=== PATIENT | female | born 1990 | race Caucasian/White ===

== ENCOUNTER 2021-09-07 22:25 | Inpatient (IN) | payer MEDICAID, OTHER ==
[~2021-09-07] VITALS: Ht 165.1 cm; Wt 62.2 kg
[2021-09-07] MEDS ORDERED: ONDANSETRON HCL 4MG/2ML INJ IV STA (23:01)
[2021-09-07 23:09] LABS: BG CARBOXYHEMOGLOBIN 2.8 % (0.5-1.5); BG DEOXYHEMOGLOBIN 0.3 % (0.0-5.0); BG FRACTION INSPIRED OXYGEN 50; BG HCO3 ACT 22.6 mmol/L (22.0-26.0); BG METHEMOGLOBIN 0.3 % (0.0-1.5); BG OXYGEN SATURATION 99.7 % (92.0-98.5); BG OXYHEMOGLOBIN 96.6 % (94.0-97.0); BG PCO2 42.4 mmHg (35.0-45.0); BG PH 7.344 (7.350-7.450); BG PO2 307.6 mmHg (75.0-100.0); BG SAMPLE SITE LEFT BRACHIAL; BG TOTAL HEMOGLOBIN 12.7 g/dL (12.0-18.0); BG VENT MODE VENT - AC
[2021-09-07] MEDS ORDERED: MIDAZOLAM HCL 50 MG in DEXTROSE 5% WATER 40 ML IV ONE (23:15)
[2021-09-07] MEDS ORDERED: MIDAZOLAM 100 MG/100 ML IV NR (23:15)
[2021-09-07] MEDS ORDERED: ETOMIDATE 2MG/ML 10ML VIAL IV ONE (23:15)
[2021-09-07] MEDS ORDERED: PROPOFOL 10MG/ML 100ML 100 ML IV ONE (23:15)
[2021-09-07] MEDS ORDERED: SODIUM CHLORIDE 0.9% 1,000 ML IV ONE (23:15)
[2021-09-07] MEDS ORDERED: VECURONIUM BROMIDE 10 MG/VIAL IV ONE (23:15)
[2021-09-08] VITALS (79 sets, daily range): BP systolic 85–148; BP diastolic 47–83
[2021-09-08 00:10] LABS: CHLORIDE 108 mEq/L (98-107)
[2021-09-08 00:14] LABS: BASOPHILS % 0.2 % (0.0-2.0); EOSINOPHILS % 0.2 % (0.0-5.0); HEMATOCRIT. 36.7 % (36.0-48.0); HEMOGLOBIN. 11.5 g/dL (12.0-16.0); LYMPHOCYTES % 9.6 % (20.0-50.0); MEAN CORPUSCULAR HEMOGLOBIN 24.7 pg (28.0-32.0); MEAN CORPUSCULAR VOLUME 78.9 fL (81.0-99.0); MEAN PLATELET VOLUME 8.9 fl (7.4-10.4); MONOCYTES % 4.9 % (2.0-8.0); NEUTROPHILS % 85.1 % (40.0-76.0); PLATELET 180 x1000/uL (130-400); RED BLOOD CELL COUNT 4.65 mill/uL (4.2-5.4); RED CELL DISTRIBUTION WIDTH 24.2 % (11.6-14.6)
[2021-09-08 00:18] LABS: ETHANOL BLOOD < 10 mg/dL
[2021-09-08 00:20] LABS: HCG SCREEN NEGATIVE
[2021-09-08 00:51] LABS: CLARITY URINE CLOUDY (CLEAR); COLOR URINE YELLOW (YELLOW); KETONES URINE 3+ (NEGATIVE); LEUKOCYTE ESTERASE URINE NEGATIVE (NEGATIVE); NITRITE URINE NEGATIVE (NEGATIVE); OCCULT BLOOD URINE NEGATIVE (NEGATIVE); PH URINE 5.5 (4.5-8.0); PROTEIN URINE 2+ (NEGATIVE); SPECIFIC GRAVITY URINE 1.026 (1.005-1.030); UROBILINOGEN URINE 0.2 E.U./dL (0.2-1.0)
[2021-09-08 01:06] LABS: *BARBITURATES SCREEN URINE NEGATIVE (NEGATIVE); *COCAINE SCREEN URINE NEGATIVE (NEGATIVE); CANNABINOID URINE SCREEN NEGATIVE (NEGATIVE); METHADONE URINE SCREEN NEGATIVE (NEGATIVE); OPIATES URINE SCREEN NEGATIVE (NEGATIVE); PHENCYCLIDINE URINE SCREEN NEGATIVE (NEGATIVE)
[2021-09-08 01:23] LABS: *AMPHETAMINES SCREEN URINE PRESUMTIVE POSITIVE (NEGATIVE); *BENZODIAZEPINES SCREEN URINE PRESUMTIVE POSITIVE (NEGATIVE)
[2021-09-08 04:50] LABS: PLATELET ESTIMATE NORMAL
[2021-09-08] MEDS ORDERED: ONDANSETRON HCL 4MG/2ML INJ IV PRN (05:45)
[2021-09-08] MEDS ORDERED: ENOXAPARIN 80MG/0.8ML SYR SUBCUT SCH ×2 (06:00→09:00)
[2021-09-08] MEDS: DEXT 5%/0.45% NACL KCL 20MEQ/L 1,000 ML IV SCH ×2 (08:13→18:04)
[2021-09-08] MEDS ORDERED: SODIUM CHLORIDE 0.9% 10ML VIAL ONE (08:17)
[2021-09-08] MEDS ORDERED: VECURONIUM BROMIDE 10 MG/VIAL IV ONE (08:17)
[2021-09-08] MEDS ORDERED: ETOMIDATE 2MG/ML 10ML VIAL IV ONE (08:17)
[2021-09-08 08:48] LABS: INR 1.1; PARTIAL THROMBOPLASTIN TIME 27.1 sec (23.4-31.0); PROTHROMBIN TIME 11.4 sec (9.6-11.0)
[2021-09-08 08:59] LABS: CHLORIDE 110 mEq/L (98-107)
[2021-09-08] MEDS ORDERED: PANTOPRAZOLE SODIUM 40 MG/VIAL IV SCH (09:00)
[2021-09-08 09:03] LABS: PHOSPHORUS 3.1 mg/dL (2.5-4.9)
[2021-09-08] MEDS: PIPERACILLIN/TAZOBACTAM 3.375 G in DEXTROSE 5% WATER 50 ML IV SCH ×3 (09:05→21:22)
[2021-09-08 09:18] LABS: HEMATOCRIT. 34.5 % (36.0-48.0); HEMOGLOBIN. 11.1 g/dL (12.0-16.0); MEAN CORPUSCULAR HEMOGLOBIN 25.8 pg (28.0-32.0); MEAN CORPUSCULAR VOLUME 80.2 fL (81.0-99.0); MEAN PLATELET VOLUME 8.4 fl (7.4-10.4); PLATELET 182 x1000/uL (130-400)
[2021-09-08 10:20] LABS: PLATELET ESTIMATE NORMAL
[2021-09-08] MEDS ORDERED: IOHEXOL-350 100 ML BOTTLE ONE (10:53)
[2021-09-08 10:58] LABS: TOTAL IRON BINDING CAPACITY 271 ug/dL (250-450)
[2021-09-08] MEDS: PROPOFOL 10MG/ML 100ML 100 ML IV PRN ×2 (11:28→21:28)
[2021-09-08 11:34] LABS: FOLIC ACID (FOLATE) SERUM 17.9 ng/mL (>5.38)
[2021-09-08 12:11] LABS: HEMATOCRIT 34.4 % (36.0-48.0); HEMOGLOBIN 10.9 g/dL (12.0-16.0)
[2021-09-08] MEDS: IPRATROPIUM/ALBUTEROL 0.5-3(2.5)MG/3ML NEB HHN SCH ×2 (13:50→20:06)
[2021-09-08] MEDS ORDERED: NOREPINEPHRINE 8 MG in DEXT 5% WATER 242 ML IV PRN (14:00)
[2021-09-08 19:34] LABS: HEMATOCRIT 34.6 % (36.0-48.0); HEMOGLOBIN 11.2 g/dL (12.0-16.0)
[2021-09-08] MEDS: PANTOPRAZOLE SODIUM 40 MG/VIAL IV SCH (21:22)
[2021-09-08] MEDS: ENOXAPARIN 60MG/0.6ML SYR SUBCUT SCH (22:42)
[2021-09-09] VITALS (93 sets, daily range): BP systolic 56–129; BP diastolic 38–101
[2021-09-09 01:02] LABS: HEMATOCRIT 32.6 % (36.0-48.0); HEMOGLOBIN 10.4 g/dL (12.0-16.0)
[2021-09-09] MEDS: IPRATROPIUM/ALBUTEROL 0.5-3(2.5)MG/3ML NEB HHN SCH ×4 (02:00→20:56)
[2021-09-09 05:53] LABS: HEMATOCRIT 31.1 % (36.0-48.0); HEMOGLOBIN 10.2 g/dL (12.0-16.0)
[2021-09-09 06:05] LABS: CHLORIDE 116 mEq/L (98-107)
[2021-09-09] MEDS: DEXT 5%/0.45% NACL KCL 20MEQ/L 1,000 ML IV SCH ×2 (06:08→13:35)
[2021-09-09] MEDS: PIPERACILLIN/TAZOBACTAM 3.375 G in DEXTROSE 5% WATER 50 ML IV SCH ×3 (06:08→21:15)
[2021-09-09] MEDS: PROPOFOL 10MG/ML 100ML 100 ML IV PRN ×4 (06:14→21:25)
[2021-09-09 06:30] LABS: BASOPHILS % 0.3 % (0.0-2.0); EOSINOPHILS % 0.8 % (0.0-5.0); HEMOGLOBIN. 10.2 g/dL (12.0-16.0); LYMPHOCYTES % 15.7 % (20.0-50.0); MEAN CORPUSCULAR HEMOGLOBIN 25.9 pg (28.0-32.0); MEAN CORPUSCULAR VOLUME 78.4 fL (81.0-99.0); MEAN PLATELET VOLUME 8.9 fl (7.4-10.4); MONOCYTES % 4.2 % (2.0-8.0); PLATELET 169 x1000/uL (130-400); RED BLOOD CELL COUNT 3.95 mill/uL (4.2-5.4); RED CELL DISTRIBUTION WIDTH 24.8 % (11.6-14.6)
[2021-09-09 06:47] LABS: HEMATOCRIT. 31.1 % (36.0-48.0)
[2021-09-09 09:00] LABS: BG BASE EXCESS -3.7 mmol/L (-2.0-2.0); BG CARBOXYHEMOGLOBIN 0.2 % (0.5-1.5); BG DEOXYHEMOGLOBIN 1.3 % (0.0-5.0); BG FRACTION INSPIRED OXYGEN 35; BG HCO3 ACT 19.6 mmol/L (22.0-26.0); BG OXYGEN SATURATION 98.7 % (92.0-98.5); BG OXYHEMOGLOBIN 97.5 % (94.0-97.0); BG PCO2 29.9 mmHg (35.0-45.0); BG PH 7.435 (7.350-7.450); BG PO2 177.7 mmHg (75.0-100.0); BG SAMPLE SITE LEFT RADIAL; BG TOTAL HEMOGLOBIN 11.1 g/dL (12.0-18.0); BG VENT MODE VENT - AC
[2021-09-09] MEDS: PANTOPRAZOLE SODIUM 40 MG/VIAL IV SCH ×2 (09:28→21:17)
[2021-09-09] MEDS: ENOXAPARIN 60MG/0.6ML SYR SUBCUT SCH ×2 (09:28→21:16)
[2021-09-09 12:38] LABS: HEMATOCRIT 30.4 % (36.0-48.0)
[2021-09-09] MEDS: IRON SUCROSE COMPLEX 100 MG/5 ML ML IV SCH (16:01)
[2021-09-09] MEDS ORDERED: POTASSIUM CHLORIDE 20MEQ TABLET SR PO NR (18:45)
[2021-09-09] MEDS: MORPHINE SULFATE 2 MG/ML CPJ (NOT FOR IM USE) IV PRN (21:15)
[2021-09-09] MEDS ORDERED: NALOXONE HCL 0.4MG/ML VIAL IV PRN (21:15)
[2021-09-10] VITALS (47 sets, daily range): BP systolic 85–123; BP diastolic 30–94
[2021-09-10] MEDS: IPRATROPIUM/ALBUTEROL 0.5-3(2.5)MG/3ML NEB HHN SCH ×4 (01:09→18:00)
[2021-09-10] MEDS: MORPHINE SULFATE 2 MG/ML CPJ (NOT FOR IM USE) IV PRN ×3 (01:41→23:08)
[2021-09-10] MEDS: PIPERACILLIN/TAZOBACTAM 3.375 G in DEXTROSE 5% WATER 50 ML IV SCH ×3 (05:43→21:46)
[2021-09-10] MEDS: DEXT 5%/0.45% NACL KCL 20MEQ/L 1,000 ML IV SCH ×3 (05:45→19:30)
[2021-09-10] MEDS: PROPOFOL 10MG/ML 100ML 100 ML IV PRN ×3 (06:13→23:16)
[2021-09-10] MEDS: PANTOPRAZOLE SODIUM 40 MG/VIAL IV SCH ×2 (09:00→21:45)
[2021-09-10] MEDS: ENOXAPARIN 60MG/0.6ML SYR SUBCUT SCH ×2 (09:00→21:46)
[2021-09-10] MEDS: IRON SUCROSE COMPLEX 100 MG/5 ML ML IV SCH (15:30)
[2021-09-11] VITALS (73 sets, daily range): BP systolic 80–129; BP diastolic 45–97
[2021-09-11] MEDS: PROPOFOL 10MG/ML 100ML 100 ML IV PRN (04:23)
[2021-09-11] MEDS: DEXT 5%/0.45% NACL KCL 20MEQ/L 1,000 ML IV SCH (04:33)
[2021-09-11 05:05] LABS: BASOPHILS % 0.4 % (0.0-2.0); EOSINOPHILS % 2.5 % (0.0-5.0); HEMATOCRIT. 29.9 % (36.0-48.0); HEMOGLOBIN. 9.8 g/dL (12.0-16.0); LYMPHOCYTES % 21.4 % (20.0-50.0); MEAN CORPUSCULAR HEMOGLOBIN 25.7 pg (28.0-32.0); MEAN CORPUSCULAR VOLUME 78.6 fL (81.0-99.0); MEAN PLATELET VOLUME 8.6 fl (7.4-10.4); MONOCYTES % 4.8 % (2.0-8.0); NEUTROPHILS % 70.9 % (40.0-76.0); PLATELET 178 x1000/uL (130-400); RED BLOOD CELL COUNT 3.81 mill/uL (4.2-5.4); RED CELL DISTRIBUTION WIDTH 24.2 % (11.6-14.6)
[2021-09-11 05:08] LABS: CHLORIDE 114 mEq/L (98-107)
[2021-09-11] MEDS: PIPERACILLIN/TAZOBACTAM 3.375 G in DEXTROSE 5% WATER 50 ML IV SCH ×3 (06:05→21:00)
[2021-09-11] MEDS: IPRATROPIUM/ALBUTEROL 0.5-3(2.5)MG/3ML NEB HHN SCH ×3 (08:19→14:24)
[2021-09-11] MEDS: PANTOPRAZOLE SODIUM 40 MG/VIAL IV SCH ×2 (09:23→20:58)
[2021-09-11] MEDS: ENOXAPARIN 60MG/0.6ML SYR SUBCUT SCH ×2 (09:24→21:00)
[2021-09-11 09:32] LABS: BG BASE EXCESS -4.9 mmol/L (-2.0-2.0); BG CARBOXYHEMOGLOBIN 0.3 % (0.5-1.5); BG DEOXYHEMOGLOBIN 0.9 % (0.0-5.0); BG FRACTION INSPIRED OXYGEN 40; BG HCO3 ACT 19.4 mmol/L (22.0-26.0); BG OXYGEN SATURATION 99.1 % (92.0-98.5); BG OXYHEMOGLOBIN 98.8 % (94.0-97.0); BG PCO2 33.2 mmHg (35.0-45.0); BG PH 7.384 (7.350-7.450); BG PO2 170.6 mmHg (75.0-100.0); BG SAMPLE SITE RIGHT RADIAL; BG TOTAL HEMOGLOBIN 11.4 g/dL (12.0-18.0); BG VENT MODE VENT - CPAP
[2021-09-11] MEDS: IRON SUCROSE COMPLEX 100 MG/5 ML ML IV SCH (14:53)
[2021-09-12] VITALS (11 sets, daily range): BP systolic 87–107; BP diastolic 51–80
[2021-09-12] MEDS: IPRATROPIUM/ALBUTEROL 0.5-3(2.5)MG/3ML NEB HHN SCH ×4 (02:48→20:40)
[2021-09-12] MEDS: PIPERACILLIN/TAZOBACTAM 3.375 G in DEXTROSE 5% WATER 50 ML IV SCH ×3 (05:26→22:13)
[2021-09-12 07:03] LABS: BASOPHILS % 0.5 % (0.0-2.0); EOSINOPHILS % 4.3 % (0.0-5.0); HEMATOCRIT. 32.7 % (36.0-48.0); HEMOGLOBIN. 10.7 g/dL (12.0-16.0); LYMPHOCYTES % 25.7 % (20.0-50.0); MEAN CORPUSCULAR HEMOGLOBIN 25.8 pg (28.0-32.0); MEAN CORPUSCULAR VOLUME 78.6 fL (81.0-99.0); MEAN PLATELET VOLUME 8.7 fl (7.4-10.4); MONOCYTES % 5.7 % (2.0-8.0); NEUTROPHILS % 63.8 % (40.0-76.0); PLATELET 227 x1000/uL (130-400); RED BLOOD CELL COUNT 4.17 mill/uL (4.2-5.4); RED CELL DISTRIBUTION WIDTH 23.7 % (11.6-14.6)
[2021-09-12 07:21] LABS: CHLORIDE 111 mEq/L (98-107)
[2021-09-12] MEDS: PANTOPRAZOLE SODIUM 40 MG/VIAL IV SCH ×2 (08:46→20:32)
[2021-09-12] MEDS: ENOXAPARIN 60MG/0.6ML SYR SUBCUT SCH ×2 (08:46→20:32)
[2021-09-12] MEDS: FLUOXETINE HCL 10 MG CAPSULE PO SCH (16:50)
[2021-09-12] MEDS: OLANZAPINE 5MG TABLET PO SCH (20:32)
[2021-09-13] VITALS (7 sets, daily range): BP systolic 81–103; BP diastolic 43–68
[2021-09-13] MEDS: IPRATROPIUM/ALBUTEROL 0.5-3(2.5)MG/3ML NEB HHN SCH ×4 (01:32→21:16)
[2021-09-13] MEDS: ENOXAPARIN 60MG/0.6ML SYR SUBCUT SCH ×2 (09:34→21:25)
[2021-09-13] MEDS: PANTOPRAZOLE SODIUM 40 MG/VIAL IV SCH ×2 (09:34→21:23)
[2021-09-13] MEDS: FLUOXETINE HCL 10 MG CAPSULE PO SCH (09:34)
[2021-09-13 11:59] LABS: BASOPHILS % 0.6 % (0.0-2.0); EOSINOPHILS % 4.3 % (0.0-5.0); HEMATOCRIT. 31.9 % (36.0-48.0); HEMOGLOBIN. 10.3 g/dL (12.0-16.0); LYMPHOCYTES % 29.2 % (20.0-50.0); MEAN CORPUSCULAR HEMOGLOBIN 25.5 pg (28.0-32.0); MEAN CORPUSCULAR VOLUME 78.9 fL (81.0-99.0); MEAN PLATELET VOLUME 8.2 fl (7.4-10.4); MONOCYTES % 6.3 % (2.0-8.0); NEUTROPHILS % 59.6 % (40.0-76.0); PLATELET 211 x1000/uL (130-400); RED BLOOD CELL COUNT 4.05 mill/uL (4.2-5.4); RED CELL DISTRIBUTION WIDTH 23.6 % (11.6-14.6)
[2021-09-13 12:25] LABS: CHLORIDE 111 mEq/L (98-107)
[2021-09-13] MEDS: HYDROXYZINE 25MG TABLET PO PRN (18:48)
[2021-09-13] MEDS: OLANZAPINE 5MG TABLET PO SCH (21:26)
[2021-09-14] VITALS: BP 97/63
[2021-09-14] MEDS: IPRATROPIUM/ALBUTEROL 0.5-3(2.5)MG/3ML NEB HHN SCH ×4 (02:29→21:26)
[2021-09-14 04:00] VITALS: BP 94/55
[2021-09-14 08:00] VITALS: BP 102/64
[2021-09-14 08:58] LABS: HEMATOCRIT. 32.7 % (36.0-48.0); HEMOGLOBIN. 10.7 g/dL (12.0-16.0); MEAN CORPUSCULAR HEMOGLOBIN 25.6 pg (28.0-32.0); MEAN CORPUSCULAR VOLUME 78.5 fL (81.0-99.0); MEAN PLATELET VOLUME 8.3 fl (7.4-10.4); PLATELET 246 x1000/uL (130-400); RED BLOOD CELL COUNT 4.17 mill/uL (4.2-5.4); RED CELL DISTRIBUTION WIDTH 23.5 % (11.6-14.6)
[2021-09-14 09:34] LABS: CHLORIDE 109 mEq/L (98-107)
[2021-09-14] MEDS: PANTOPRAZOLE SODIUM 40 MG/VIAL IV SCH ×2 (09:42→20:39)
[2021-09-14] MEDS: ENOXAPARIN 60MG/0.6ML SYR SUBCUT SCH ×2 (09:42→20:39)
[2021-09-14] MEDS: FLUOXETINE HCL 10 MG CAPSULE PO SCH (09:42)
[2021-09-14 12:00] VITALS: BP 102/51
[2021-09-14] MEDS ORDERED: LACTULOSE 20G/30ML UDC PO PRN (15:00)
[2021-09-14] MEDS ORDERED: DOCUSATE SODIUM 250MG CAPSULE PO PRN (15:00)
[2021-09-14 16:00] VITALS: BP 101/59
[2021-09-14 19:50] VITALS: BP 98/61
[2021-09-14] MEDS: HYDROXYZINE 25MG TABLET PO PRN (20:15)
[2021-09-14] MEDS: OLANZAPINE 5MG TABLET PO SCH (20:39)
[2021-09-15] VITALS (7 sets, daily range): BP systolic 92–110; BP diastolic 52–66
[2021-09-15] MEDS: IPRATROPIUM/ALBUTEROL 0.5-3(2.5)MG/3ML NEB HHN SCH ×4 (02:24→20:38)
[2021-09-15 07:31] LABS: BASOPHILS % 0.9 % (0.0-2.0); EOSINOPHILS % 3.3 % (0.0-5.0); HEMATOCRIT. 32.2 % (36.0-48.0); HEMOGLOBIN. 10.3 g/dL (12.0-16.0); LYMPHOCYTES % 46.4 % (20.0-50.0); MEAN CORPUSCULAR HEMOGLOBIN 25.3 pg (28.0-32.0); MEAN CORPUSCULAR VOLUME 79.2 fL (81.0-99.0); MEAN PLATELET VOLUME 8.3 fl (7.4-10.4); MONOCYTES % 6.8 % (2.0-8.0); NEUTROPHILS % 42.6 % (40.0-76.0); PLATELET 266 x1000/uL (130-400); RED BLOOD CELL COUNT 4.07 mill/uL (4.2-5.4); RED CELL DISTRIBUTION WIDTH 22.7 % (11.6-14.6)
[2021-09-15 08:49] LABS: CHLORIDE 108 mEq/L (98-107)
[2021-09-15] MEDS: FLUOXETINE HCL 10 MG CAPSULE PO SCH (09:01)
[2021-09-15] MEDS: ENOXAPARIN 60MG/0.6ML SYR SUBCUT SCH (09:02)
[2021-09-15] MEDS: PANTOPRAZOLE SODIUM 40 MG/VIAL IV SCH ×2 (09:02→21:09)
[2021-09-15 09:46] LABS: PLATELET ESTIMATE NORMAL
[2021-09-15] MEDS: APIXABAN 5 MG TABLET PO SCH (17:19)
[2021-09-15] MEDS: HYDROXYZINE 25MG TABLET PO PRN (17:45)
[2021-09-15] MEDS ORDERED: POTASSIUM CHLORIDE 20MEQ TABLET SR PO NR (20:30)
[2021-09-15] MEDS: OLANZAPINE 5MG TABLET PO SCH (21:08)
[2021-09-16] VITALS: BP 95/48
[2021-09-16] MEDS: IPRATROPIUM/ALBUTEROL 0.5-3(2.5)MG/3ML NEB HHN SCH ×4 (02:26→21:41)
[2021-09-16 04:00] VITALS: BP 93/50
[2021-09-16] MEDS: FLUOXETINE HCL 10 MG CAPSULE PO SCH (08:57)
[2021-09-16] MEDS: APIXABAN 5 MG TABLET PO SCH ×2 (08:58→15:55)
[2021-09-16] MEDS: PANTOPRAZOLE SODIUM 40 MG/VIAL IV SCH ×2 (08:58→20:35)
[2021-09-16] MEDS ORDERED: FLUO10CA28 PO (11:16)
[2021-09-16] MEDS ORDERED: LACT10SO7 PO (11:16)
[2021-09-16] MEDS ORDERED: OLAN5TAB74 PO (11:16)
[2021-09-16] MEDS ORDERED: APIX5TAB PO (11:16)
[2021-09-16 12:00] VITALS: BP 89/53
[2021-09-16] MEDS: HYDROXYZINE 25MG TABLET PO PRN (15:59)
[2021-09-16 16:08] VITALS: BP 103/70
[2021-09-16 20:00] VITALS: BP 105/58
[2021-09-16] MEDS: OLANZAPINE 5MG TABLET PO SCH (20:32)
[2021-09-17] VITALS: BP 97/56
[2021-09-17] MEDS: IPRATROPIUM/ALBUTEROL 0.5-3(2.5)MG/3ML NEB HHN SCH ×4 (03:05→20:29)
[2021-09-17 04:00] VITALS: BP 101/56
[2021-09-17 08:00] VITALS: BP 99/64
[2021-09-17] MEDS: PANTOPRAZOLE SODIUM 40 MG/VIAL IV SCH (09:57)
[2021-09-17] MEDS: APIXABAN 5 MG TABLET PO SCH ×2 (09:57→19:06)
[2021-09-17] MEDS: FLUOXETINE HCL 10 MG CAPSULE PO SCH (09:57)
[2021-09-17 12:00] VITALS: BP 98/66
[2021-09-17 16:00] VITALS: BP 89/56
[2021-09-17 19:19] VITALS: BP 102/56
[2021-09-17] MEDS ORDERED: PANTOPRAZOLE 40MG DR TABLET PO SCH (20:00)
[2021-09-17] MEDS: HYDROXYZINE 25MG TABLET PO PRN (20:04)
[2021-09-17] MEDS: OLANZAPINE 5MG TABLET PO SCH (20:05)
[2021-09-17] MEDS: PANTOPRAZOLE 40MG DR TABLET PO SCH (20:26)
[2021-09-18 00:25] VITALS: BP 98/66
[2021-09-18] MEDS: IPRATROPIUM/ALBUTEROL 0.5-3(2.5)MG/3ML NEB HHN SCH ×4 (02:41→21:29)
[2021-09-18 04:11] VITALS: BP 100/75
[2021-09-18] MEDS: PANTOPRAZOLE 40MG DR TABLET PO SCH ×2 (08:40→20:55)
[2021-09-18] MEDS: FLUOXETINE HCL 10 MG CAPSULE PO SCH (08:41)
[2021-09-18] MEDS: APIXABAN 5 MG TABLET PO SCH ×2 (08:41→17:26)
[2021-09-18] MEDS ORDERED: HYDROXYZINE 25MG TABLET PO PRN (19:15)
[2021-09-18 20:00] VITALS: BP 90/51
[2021-09-18] MEDS: OLANZAPINE 5MG TABLET PO SCH (20:56)
[2021-09-18] MEDS ORDERED: ACETAMINOPHEN 325MG TABLET PO PRN (22:30)
[2021-09-19] VITALS: BP 118/76
[2021-09-19] MEDS: IPRATROPIUM/ALBUTEROL 0.5-3(2.5)MG/3ML NEB HHN SCH ×3 (00:42→15:23)
[2021-09-19 04:00] VITALS: BP 111/67
[2021-09-19 05:31] LABS: BASOPHILS % 0.9 % (0.0-2.0); EOSINOPHILS % 1.6 % (0.0-5.0); HEMATOCRIT. 33.2 % (36.0-48.0); HEMOGLOBIN. 10.7 g/dL (12.0-16.0); LYMPHOCYTES % 33.3 % (20.0-50.0); MEAN CORPUSCULAR HEMOGLOBIN 25.8 pg (28.0-32.0); MEAN CORPUSCULAR VOLUME 80.2 fL (81.0-99.0); MONOCYTES % 6.3 % (2.0-8.0); NEUTROPHILS % 57.9 % (40.0-76.0); PLATELET 291 x1000/uL (130-400); RED BLOOD CELL COUNT 4.15 mill/uL (4.2-5.4); RED CELL DISTRIBUTION WIDTH 22.7 % (11.6-14.6)
[2021-09-19 05:42] LABS: CHLORIDE 109 mEq/L (98-107)
[2021-09-19 08:00] VITALS: BP 100/62
[2021-09-19] MEDS ORDERED: FLUOXETINE HCL 20MG CAPSULE PO SCH (09:00)
[2021-09-19] MEDS: APIXABAN 5 MG TABLET PO SCH (09:42)
[2021-09-19] MEDS: PANTOPRAZOLE 40MG DR TABLET PO SCH (09:42)
[2021-09-19 12:00] VITALS: BP 102/61
[2021-09-19 16:00] VITALS: BP 105/67
[2021-09-19 16:18] VITALS: BP 109/66
[2021-09-22] MEDS ORDERED: APIXABAN 5 MG TABLET PO SCH (17:00)
== END 2021-09-19 17:20 | disposition home or self-care (01) | DRG 720 ==
LOC: ER 22:25 → MICUSO 09-08 03:30 → ENRESERV 09-08 03:52 → 5EST 09-11 19:50 → 6EST 09-13 00:52
PROVIDERS: ADMIT Internal Medicine; ATTEND Internal Medicine
PROC: 5A1945Z Respiratory Ventilation, 24-96 Consecutive Hours (ICD-10-PCS; principal; 2021-09-08)
PROC: 0BH17EZ Insertion of Endotracheal Airway into Trachea, Via Natural or Artificial Opening (ICD-10-PCS; 2021-09-08)
PROC: 06HY33Z Insertion of Infusion Device into Lower Vein, Percutaneous Approach (ICD-10-PCS; 2021-09-08)
DX: A41.9 Sepsis, unspecified organism (principal); J96.01 Acute respiratory failure with hypoxia; I26.99 Other pulmonary embolism without acute cor pulmonale; J69.0 Pneumonitis due to inhalation of food and vomit; G93.40 Encephalopathy, unspecified; F32.3 Major depressive disorder, single episode, severe with psychotic features; K22.6 Gastro-esophageal laceration-hemorrhage syndrome; T50.901A Poisoning by unspecified drugs, medicaments and biological substances, accidental (unintentional), initial encounter; I82.411 Acute embolism and thrombosis of right femoral vein; D50.9 Iron deficiency anemia, unspecified; F17.210 Nicotine dependence, cigarettes, uncomplicated; E87.6 Hypokalemia; R73.9 Hyperglycemia, unspecified; F13.90 Sedative, hypnotic, or anxiolytic use, unspecified, uncomplicated; R14.0 Abdominal distension (gaseous); F15.10 Other stimulant abuse, uncomplicated; F16.10 Hallucinogen abuse, uncomplicated; F90.9 Attention-deficit hyperactivity disorder, unspecified type; I82.491 Acute embolism and thrombosis of other specified deep vein of right lower extremity; Z20.822 Contact with and (suspected) exposure to COVID-19; K29.61 Other gastritis with bleeding; Z71.51 Drug abuse counseling and surveillance of drug abuser; Y92.098 Other place in other non-institutional residence as the place of occurrence of the external cause; Z78.1 Physical restraint status
CPT/HCPCS: 36415; 36600; 71045; 71275; 74176; 80048; 80053; 80305; 80307; 80320; 80329; 81003; 82375; 82607; 82728; 82746; 82805; 83540; 83550; 83605; 83735; 83930; 84100; 84478; 84484; 84703; 85014; 85018; 85025; 85044; 85379; 86850; 86900; 87070; 87077; 87426; 93005; 93970; 94002; 94003; 94640; 94664; 99291; C9113; C9803; J1650; J2250; J2270; J2543; J2704; J3490; J7030; J7060; Q9967; U0003; U0005; G0480

== ENCOUNTER 2022-01-31 20:19 | Emergency (ER) | payer MEDICAID, OTHER ==
[~2022-01-31] VITALS: Ht 170.2 cm; Wt 68.0 kg
[~2022-01-31 20:19] MED LIST: APIX5TAB PO; FLUO10CA28 PO; LACT10SO7 PO; OLAN5TAB74 PO
[2022-01-31 22:29] LABS: BASOPHILS % 0.9 % (0.0-2.0); EOSINOPHILS % 0.1 % (0.0-5.0); HEMATOCRIT. 39.4 % (36.0-48.0); HEMOGLOBIN. 13.4 g/dL (12.0-16.0); LYMPHOCYTES % 28.3 % (20.0-50.0); MEAN CORPUSCULAR HEMOGLOBIN 28.9 pg (28.0-32.0); MEAN CORPUSCULAR VOLUME 84.8 fL (81.0-99.0); MEAN PLATELET VOLUME 9.3 fl (7.4-10.4); MONOCYTES % 4.1 % (2.0-8.0); NEUTROPHILS % 66.6 % (40.0-76.0); PLATELET 281 x1000/uL (130-400); RED BLOOD CELL COUNT 4.65 mill/uL (4.2-5.4); RED CELL DISTRIBUTION WIDTH 13.8 % (11.6-14.6)
[2022-01-31 22:30] LABS: CLARITY URINE CLOUDY (CLEAR); COLOR URINE YELLOW (YELLOW); KETONES URINE TRACE (NEGATIVE); LEUKOCYTE ESTERASE URINE TRACE (NEGATIVE); NITRITE URINE NEGATIVE (NEGATIVE); OCCULT BLOOD URINE 3+ (NEGATIVE); PROTEIN URINE 1+ (NEGATIVE)
[2022-01-31 22:43] LABS: *AMPHETAMINES SCREEN URINE NEGATIVE (NEGATIVE); *BARBITURATES SCREEN URINE NEGATIVE (NEGATIVE); *BENZODIAZEPINES SCREEN URINE NEGATIVE (NEGATIVE); *COCAINE SCREEN URINE PRESUMTIVE POSITIVE (NEGATIVE); CANNABINOID URINE SCREEN NEGATIVE (NEGATIVE); METHADONE URINE SCREEN NEGATIVE (NEGATIVE); OPIATES URINE SCREEN NEGATIVE (NEGATIVE); PHENCYCLIDINE URINE SCREEN NEGATIVE (NEGATIVE)
[2022-01-31 22:49] LABS: CHLORIDE 104 mEq/L (98-107); ETHANOL BLOOD < 10 mg/dL
[2022-01-31] MEDS ORDERED: LORAZEPAM 1MG TABLET PO ONE (23:00)
[2022-01-31] MEDS ORDERED: HALOPERIDOL 5MG TABLET PO ONE (23:00)
[2022-01-31] MEDS ORDERED: DIPHENHYDRAMINE 50MG CAPSULE PO ONE (23:00)
[2022-02-01] MEDS ORDERED: CLONAZEPAM 1MG TABLET PO ONE (10:00)
[2022-02-01] MEDS ORDERED: OLANZAPINE 5MG TABLET ODT PO PRN (10:30)
[2022-02-01 10:31] VITALS: BP 120/73
[2022-02-01] MEDS ORDERED: OLANZAPINE 10MG TABLET PO SCH (21:00)
== END 2022-02-01 10:33 | disposition home or self-care (01) ==
LOC: ER 20:19
DX: F20.0 Paranoid schizophrenia (principal); F14.10 Cocaine abuse, uncomplicated; Z20.822 Contact with and (suspected) exposure to COVID-19
CPT/HCPCS: 36415; 80053; 80305; 80307; 80320; 80329; 81003; 85025; 99285; C9803; J1630; Q0163; U0003; U0005; G0480